=== PATIENT | male | born 1960 | race Caucasian/White ===

== ENCOUNTER 2022-03-11 07:02 | Outpatient (CLI) | payer BC, SELFPAY ==
--- NOTE | 2022-03-11 08:48 | W.ANESCHARGE ---
Anesthesia Charges Start Date/Time Anesthesia Start Date: 03/11/22 Anesthesia Start Time: 08:04 Stop Date/Time Anesthesia Stop Date: 03/11/22 Anesthesia Stop Time: 08:46 Summary Emergency: No
--- NOTE | 2022-03-11 09:17 | W.ANESCHARGE ---
Anesthesia Charges Start Date/Time Anesthesia Start Date: 03/11/22 Anesthesia Start Time: 08:04 Stop Date/Time Anesthesia Stop Date: 03/11/22 Anesthesia Stop Time: 08:46 Summary Emergency: No
== END 2022-03-11 07:03 | disposition home or self-care (01) ==
PROVIDERS: Visit Provider Internal Medicine Gastroenterology
DX: Z12.11 Encounter for screening for malignant neoplasm of colon (principal); K63.5 Polyp of colon; Z86.010 Personal history of colon polyps
CPT/HCPCS: 00811; 45380; 45385; 88305